=== PATIENT | female | born 1965 | race Caucasian/White ===

== ENCOUNTER 2019-09-16 07:47 | Observation (INO) | payer SELFPAY ==
[~2019-09-16] VITALS: Ht 170.2 cm; Wt 106.6 kg
[2019-09-16] VITALS (8 sets, daily range): BP systolic 116–141; BP diastolic 52–81
[~2019-09-16 07:47] MED LIST: EPIPEN 2-P0.3 MG/0.3; MELOXICAM7.5 MG PO; PROBIOTI2 PO; TRAMADOL HYDROC50 M1 PO
[2019-09-16] MEDS ORDERED: PERCOCET 5/325M1 TAB PO (10:58)
[2019-09-16] MEDS ORDERED: TORADOL PO (10:58)
--- NOTE | 2019-09-16 16:07 | NUR ---
RECEIVED FROM RR VIA STRETCHER INTO ROOM 268. ASSISTED INTO BED. RESP NON-LABORED. LUNGS CLEAR. ABD DISTENDED WITH BOWEL SOUNDS PRESENT. MIDLINE ABD DSG CDI. ABD BINDER IN PLACE. SCD'S ON. IV IN RFA WITH LR INFUSING AT 100 ML/HR, IV SITE BENIGN. ORIENTED TO SURROUNDINGS. EXPLAINED USE OF CALL LANDAVERDE AND BED CONTROLS.
--- NOTE | 2019-09-16 16:30 | NUR ---
AMBULATED TO WITH MINIMAL ASSIST. VOIDING CLEAR YELLOW URINE.
--- NOTE | 2019-09-16 19:30 | NUR ---
PATIENT RESTING IN BED AT THIS ITME-AWAKE ALERT AND ORIENTEDX3. PATIENT WAS JUST MEDICATED FOR POST-OP PAIN BY DAYSHIFT NURSE. IV SITE TO RIGHT FOREARM INTACT WITH IVF PATENT AND INFUSING ORDERED. SITE IS HEALTHY AT THIS TIME. ABD DSGIS CDI. ABD BINDER IN PLACE. BS+. LUNGS ARE CLEAR. SCD'S IN PLACE. ENCOURAGED CDB EXERCISES. UP TO BR TO VOID QS YELLOW URINE. SAFEY PRECAUTIONS REINFORCED. CALL LIGHT IN REACH. WILL CONT TO MONITOR.
--- NOTE | 2019-09-16 23:46 | NUR ---
PATIENT RESTING IN BED-C/O POST-OP ABD PAIN-8/10 ON PAIN SCALE. MEDICATED WITH DILAUDID 1MG IVP FOR PAIN. IV SITE CONVERTED TO SALINE LOCK WITH GOOD BLOOD RETURN. PATIENT IS UP TO BR VOIDING QS YELLOW URINE. ABD BINDERIN PLACE. ABD DRESSING IS CDI. SCD'S IN PLACE. SAFETY PRECAUTIONS REINFORCED. CALL LIGHT IN REACH. WILL CONT TO MONITOR.
[2019-09-17 00:45] VITALS: BP 105/74
--- NOTE | 2019-09-17 03:51 | NUR ---
APPEARS SLEEPING IN BED AT THIS ITME-EYES CLOSED. RESP ARE EVEN AND UNLABORED. SCD'S IN PLACE. CALL LIGHT IN REACH. WILL CONT TO MONITOR.
[2019-09-17 04:18] VITALS: BP 109/66
--- NOTE | 2019-09-17 04:44 | NUR ---
PATIENT RESTING IN BED-VOIDING QS YELLOW URINE IN BR. C/O POST-OP PAIN-8/10 ON PAIN SCALE. MEDICATED WITH DILAUDID 1MG IVP FOR PAIN. SAFETY PRECAUTIONS REINFORCED. CALL LIGHT IN REACH. WILL CONT TO MONITOR.
[2019-09-17 08:00] VITALS: BP 112/59
--- NOTE | 2019-09-17 08:00 | NUR ---
ASSESSMENT IS COMPLETED: IV SITE IS FREE FROM REDNESS OR EDEMA. HR IS REG,PULSES ARE STRONG X4, ABD IS SOFT WITH ACTIVE BS. BREATH SOUNDS ARE CLEAR BILATERALLY. DRESSING ON ABD IS CDI. WITH ABD BINDER IN PLACE. CONTINUE TO [place]ERVE AND MONITOR.
--- NOTE | 2019-09-17 10:40 | NUR ---
Discharge instructions given. Patient verbalizes understanding of same. Discharged in stable condition via Wheelchair to Home with family. All belongings sent with pt.
--- NOTE | 2019-09-17 10:45 | NUR ---
DISCHARGE INSTRUCTIONS GIVEN AND VERBALIZED UNDERSTANDING. IV SITE DISCONTINUED CATHETER INTACT. FAMILY IN THE ROOM
== END 2019-09-17 10:42 | disposition home or self-care (01) | DRG 355 ==
LOC: ORM 07:47 → MS2 12:45 → ORM 16:00 → MS2 16:18 → ORM 16:18 → MS2 09-17 10:42
PROVIDERS: ADMIT Surgery; ATTEND Surgery
PROC: 0WUF0JZ Supplement Abdominal Wall with Synthetic Substitute, Open Approach (ICD-10-PCS; principal; 2019-09-16)
DX: K43.0 Incisional hernia with obstruction, without gangrene (principal); E66.01 Morbid (severe) obesity due to excess calories; Z85.89 Personal history of malignant neoplasm of other organs and systems; Z90.710 Acquired absence of both cervix and uterus
CPT/HCPCS: J0131; J1100; J2710

== ENCOUNTER 2019-10-02 08:30 | Emergency (ER) | payer SELFPAY ==
[~2019-10-02] VITALS: Ht 170.2 cm; Wt 102.3 kg
[~2019-10-02 08:30] MED LIST changes: +PERCOCET 5/325M1 TAB PO; +TORADOL PO
[2019-10-02 09:59] LABS: HEMATOCRIT 40.7 % (37.0-47.0); HEMOGLOBIN 12.1 g/dl (12.0-16.0); IMMATURE GRANULOCYTES 0.2 % (0.0-5.0); MEAN CELL VOLUME 77.2 fL CALC (80.0-100.0); MEAN CORPUSCULAR HGB CONC 29.7 g/L CALC (32.0-36.0); NEUT# 5.88 thou/uL (2.00-7.15); RED BLOOD COUNT 5.27 mill/uL (4.20-5.60)
[2019-10-02 10:06] LABS: URINE BILIRUBIN - DIPSTICK NEGATIVE (NEGATIVE); URINE BLOOD DIPSTICK NEGATIVE (NEGATIVE); URINE COLOR YELLOW; URINE GLUCOSE - DIPSTICK NEGATIVE (NEGATIVE); URINE KETONE NEGATIVE (NEGATIVE); URINE LEUK ESTERASE NEGATIVE (NEGATIVE); URINE NITRITE - DIPSTICK NEGATIVE (Negative); URINE PROTEIN - DIPSTICK NEGATIVE (NEG-TRACE); URINE SPECIFIC GRAVITY <=1.005; URINE UROBILINOGEN - DIPSTICK 0.2 E.U./dL (0.2)
[2019-10-02 10:33] LABS: ALBUMIN 4.3 g/dL (3.2-5.0); ALKALINE PHOSPHATASE 113 u/l (38-126); ANION GAP 17 (6-22 (CALC)); BILIRUBIN, TOTAL 0.7 mg/dL (0.0-1.4); BUN 8 mg/dL (7-17); BUN/CREATININE RATIO 15 (12-20 (CALC)); CARBON DIOXIDE 25 mmol/l (22-30); CHLORIDE 99 mmol/l (95-108); CREATININE 0.5 mg/dL (0.5-1.0); GFR > 60 ML/MIN (>=60 (CALC)); GFR FOR AFR.AMER. > 60 ML/MIN (>=60 (CALC)); POTASSIUM 5.1 mmol/l (3.5-5.1); SGOT/AST 48 u/l (14-36); SODIUM 137 mmol/l (137-146); TOTAL PROTEIN 8.2 g/dL (6.3-8.2)
[2019-10-02] MEDS ORDERED: DOXYCYCL HYC100 MG PO (12:09)
[2019-10-02 12:38] VITALS: BP 120/63
== END 2019-10-02 12:38 | disposition home or self-care (01) | DRG 863 ==
LOC: ED 08:30
PROVIDERS: Family Medicine
PROC: 0H97XZZ Drainage of Abdomen Skin, External Approach (ICD-10-PCS; principal; 2019-10-02)
DX: T81.41XA Infection following a procedure, superficial incisional surgical site, initial encounter (principal); L02.211 Cutaneous abscess of abdominal wall; B95.5 Unspecified streptococcus as the cause of diseases classified elsewhere; Y83.8 Other surgical procedures as the cause of abnormal reaction of the patient, or of later complication, without mention of misadventure at the time of the procedure
CPT/HCPCS: Q9967

== ENCOUNTER 2020-12-07 07:54 | Day surgery (SDC) | payer SELFPAY ==
[2020-12-07] VITALS (9 sets, daily range): BP systolic 124–170; BP diastolic 76–96
[~2020-12-07] VITALS: Ht 167.6 cm; Wt 102.3 kg
[~2020-12-07 07:54] MED LIST changes: +DOXYCYCL HYC100 MG PO
[2020-12-07] MEDS ORDERED: PERCOCET 5/325M1 TAB PO (12:22)
[2020-12-07] MEDS ORDERED: TORADOL PO (12:22)
[2020-12-08 03:52] VITALS: BP 136/80
[2020-12-08 08:30] VITALS: BP 105/66
[2020-12-08] MEDS ORDERED: HYDROCO/APAP1 TA9 PO (08:43)
== END 2020-12-08 14:16 | disposition home or self-care (01) | DRG 337 ==
LOC: ORM 07:54 → MS2 14:50 → ORM 12-08 14:16
PROVIDERS: ATTEND Surgery
PROC: 0WUF4JZ Supplement Abdominal Wall with Synthetic Substitute, Percutaneous Endoscopic Approach (ICD-10-PCS; principal; 2020-12-07)
PROC: 0DNU4ZZ Release Omentum, Percutaneous Endoscopic Approach (ICD-10-PCS; 2020-12-07)
DX: K43.2 Incisional hernia without obstruction or gangrene (principal); K66.0 Peritoneal adhesions (postprocedural) (postinfection); E66.01 Morbid (severe) obesity due to excess calories; Z85.44 Personal history of malignant neoplasm of other female genital organs; Z20.822 Contact with and (suspected) exposure to COVID-19
CPT/HCPCS: C1781; J0131; J1100; J1650